=== PATIENT | female | born 1970 | race Asian ===

== ENCOUNTER 2018-05-02 09:21 | Emergency (ER) | payer OTHER ==
[~2018-05-02] VITALS: Ht 167.6 cm; Wt 100.2 kg
[2018-05-02 09:29] VITALS: Ht 167.6 cm; Wt 100.2 kg
[2018-05-02 13:10] VITALS: BP 148/89
== END 2018-05-02 13:10 | disposition home or self-care (01) ==
LOC: ED 09:21 → EDBD 09:21 → ED 13:10
DX: S83.8X1A Sprain of other specified parts of right knee, initial encounter (principal); S09.90XA Unspecified injury of head, initial encounter; R11.2 Nausea with vomiting, unspecified; M54.2 Cervicalgia; Z90.710 Acquired absence of both cervix and uterus; W18.39XA Other fall on same level, initial encounter; Y93.E9 Activity, other interior property and clothing maintenance; Y92.096 Garden or yard of other non-institutional residence as the place of occurrence of the external cause; Y99.8 Other external cause status